=== PATIENT | female | born 1935 | race Caucasian/White ===

== ENCOUNTER 2017-07-05 11:13 | Emergency (ER) | payer OTHER ==
[~2017-07-05] VITALS: Ht 154.9 cm; Wt 95.3 kg
[~2017-07-05 11:13] MED LIST: ALLOPURINOL PO; ALLOPURINOL100 MG PO; AMLODIPINE PO; AMLODIPINE5 MG PO; ASA PO; ASPIRIN81 M1 PO; COZAAR50 MG PO; DARVOCET N 1001 TAB PO; FUROSEMIDE PO; HUMALOG MIX 50/10 ML SC; HUMULOG; LASIX20 MG PO; LEVOTHYROXIN PO; LEVOTHYROXINE0.05 MG PO; LODINE200 MG PO; LOPRESSOR25 MG PO; LOSARTAN PO; Lopressor25 MG PO; MELOXICAM PO; MELOXICAM15 MG PO; METFORMIN PO; METFORMIN500 MG PO; METOPROLOL PO; MICRO-K8 MEQ PO; POTASSIUM CHLORIDE PO; PRAVACHOL20 MG PO; PRAVASTATIN PO; PROTONIX40 MG PO
[2017-07-05 11:18] VITALS: BP 152/63
== END 2017-07-05 13:40 | disposition home or self-care (01) ==
LOC: ED 11:13
DX: M54.2 Cervicalgia (principal); M25.511 Pain in right shoulder; E11.65 Type 2 diabetes mellitus with hyperglycemia; Z95.0 Presence of cardiac pacemaker; Z79.4 Long term (current) use of insulin; Z79.82 Long term (current) use of aspirin; Z88.0 Allergy status to penicillin; Z90.49 Acquired absence of other specified parts of digestive tract; W01.0XXA Fall on same level from slipping, tripping and stumbling without subsequent striking against object, initial encounter; Y93.89 Activity, other specified; Y92.9 Unspecified place or not applicable; Y99.9 Unspecified external cause status

== ENCOUNTER 2019-07-29 14:44 | Inpatient (IN) | payer OTHER ==
[~2019-07-29] VITALS: Ht 154.9 cm; Wt 90.6 kg
[2019-07-29 14:48] VITALS: BP 123/72
[2019-07-29 15:11] LABS: BASO % 0.6 % (0.0-1.0); EOS # 0.1 10*3/uL (0.0-0.4); EOS % 2.1 % (1.0-4.0); HEMATOCRIT 36.3 % (37.0-47.0); HEMOGLOBIN 11.8 g/dl (12.0-16.0); LYMPH # 1.7 10*3/uL (1.3-4.4); MEAN CELL VOLUME 96.5 fl (81.0-99.0); MEAN CORPUSCULAR HGB 31.4 pg (27.0-31.0); MEAN CORPUSCULAR HGB CONC 32.5 g/dl (33.0-37.0); MEAN PLATELET VOLUME 11.3 fl (9.6-12.3); MONO # 0.7 10*3/uL (0.1-1.0); MONO % 10.8 % (3.0-9.0); NEUT # 4.1 10*3/uL (2.3-7.9); NEUT % 61.4 % (47.0-73.0); PLATELET COUNT AUTOMATED 176 10*3/uL (130-400); RED BLOOD COUNT 3.76 10*6/uL (4.10-5.10); RED CELL DISTRI WIDTH 16.7 % (0-14.5); WHITE BLOOD COUNT 6.8 10*3/uL (4.8-10.8)
[2019-07-29 15:24] LABS: ACT PARTIAL THROMBO TIME 23.4 SECONDS (20.0-32.1); INTERNATIONAL NORM RATIO 0.9 (2.0-3.5)
[2019-07-29 15:26] LABS: ALBUMIN 3.3 gm/dl (3.1-4.5); ALKALINE PHOSPHATASE 77 U/L (45-117); BUN 42 mg/dl (7-24); CHLORIDE 112 mmol/L (98-107); POTASSIUM 5.6 mmol/L (3.5-5.1); SGOT/AST 9 IU/L (3-35); SGPT/ALT 13 U/L (12-78); SODIUM 137 mmol/L (136-145); TOTAL PROTEIN 7.5 gm/dL (6.4-8.2)
[2019-07-29 15:30] LABS: TROPONIN I < 0.015 ng/ml (<0.045)
[2019-07-29 17:01] VITALS: BP 132/41
--- NOTE | 2019-07-29 17:01 | NUR ---
NO C/O AT THIS TIME.FAMILY AT BEDSIDE.--NIGEL HUFFMAN RN
[2019-07-29 18:07] VITALS: BP 139/54
[2019-07-29 18:28] VITALS: BP 150/50
--- NOTE | 2019-07-29 18:28 | NUR ---
A 84 YEAR OLD FEMALE PATIENT, admitted to 5E, under the services of ROSSY Jha DO with a diagnosis of MICKI,SYNCOPE,CHEST PAIN. Chief complaint is MULTIPLE COMPLAINTS. Patient arrived via CART WITH RN from ER. Monitor applied. Initial assessment completed. Vital signs taken and recorded. See assessment for past medical history, medications and allergies. atient and/or family oriented to unit. [facility] visitation policy reviewed. Clothing/patient valuable form completed. FRANCISCO WISDOM
[2019-07-29] MEDS ORDERED: TRIAMTERENE-HC1 EACH PO (19:36)
[2019-07-29] MEDS ORDERED: VITAMIN D-32000 UNI1 PO (19:36)
[2019-07-29] MEDS ORDERED: LOSARTAN POTAS100 M1 PO (19:37)
[2019-07-29] MEDS ORDERED: Lopressor25 MG PO (19:37)
[2019-07-29 20:00] VITALS: BP 142/49
--- NOTE | 2019-07-29 20:21 | NUR ---
2000 RESTING IN BED WITH HOB ELEVATED. SIDE RAILS UP X'S 2. CALL LIGHT IN REACH. PT IS VERY BARROW. FAMILY VS. IV FLUIDS INFUSING WELL. NO DISTRESS NOTED.
--- NOTE | 2019-07-29 22:09 | NUR ---
NO RESULTS FROM EARLIER PO KAYEXALALTE GIVEN. WILL CONT TO MONITOR.
[2019-07-29 23:48] LABS: CREATININE 2.48 mg/dL (0.55-1.02); POTASSIUM 5.4 mmol/L (3.5-5.1)
[2019-07-30] VITALS: BP 139/50
--- NOTE | 2019-07-30 00:20 | NUR ---
RESTING IN BED WITH EYES CLOSED. APPEARS TO BE SLEEPING.
--- NOTE | 2019-07-30 06:08 | NUR ---
IV FLUIDS CONT. RESTING IN BED WITH EYES CLOSED. APPEARS TO BE SLEEPING. NO DISTRESS NOTED. CONDITION GUARDED.
[2019-07-30 06:51] LABS: CREATININE 2.08 mg/dL (0.55-1.02); POTASSIUM 5.5 mmol/L (3.5-5.1)
[2019-07-30 07:00] LABS: THYROID STIM HORMONE (HS) 2.27 uIU/ml (0.358-4.75)
[2019-07-30 08:00] VITALS: BP 132/72
[2019-07-30 08:06] LABS: VITAMIN D, 25-HYDROXY 20.3 ng/mL (30-100)
[2019-07-30 08:45] LABS: HEMATOCRIT 34.3 % (37.0-47.0); HEMOGLOBIN 11.2 g/dl (12.0-16.0); MEAN CELL VOLUME 95.8 fl (81.0-99.0); MEAN CORPUSCULAR HGB 31.3 pg (27.0-31.0); MEAN CORPUSCULAR HGB CONC 32.7 g/dl (33.0-37.0); MEAN PLATELET VOLUME 11.9 fl (9.6-12.3); PLATELET COUNT AUTOMATED 139 10*3/uL (130-400); RED BLOOD COUNT 3.58 10*6/uL (4.10-5.10); RED CELL DISTRI WIDTH 16.4 % (0-14.5); WHITE BLOOD COUNT 6.8 10*3/uL (4.8-10.8)
--- NOTE | 2019-07-30 08:52 | NUR ---
PHYSICAL THERAPY Nursing screen received and chart reviewed. Recommend PT evaluation if decline in functional status presents. Thank you. Lissette Moya,PT,DPT
[2019-07-30 09:01] LABS: TOTAL CELLS COUNTED 100 #CELLS
[2019-07-30 09:02] LABS: PLATELET SUFFICIENCY NORMAL (NORMAL)
--- NOTE | 2019-07-30 11:10 | NUR ---
Shift Mgr in to talk to patient. Patient states lives at HOME with HER DAUGHTER. There are STEPS steps in the home. Physician: L[facility]: [facility] Home health services: NONE AT THIS TIME Patient's level of ADLs: MODERATE ASSIST Patient has working utilities: YES DME: NONE Follow-up physician's appointment after d/c: WILL BE MADE BY HOSPITALIST NURSE DIRECTOR ON DISCHARGE Does patient want to access PORTAL?: NO Discharge plan PT LIVES WITH DAUGHTER AND STATES SHE PLANS TO RETURN HOME WITH DAUGHTER ON DISCHARGE. STATES SHE WILL HAVE NO NEEDS ON DISCHARGE AT THIS TIME. WILL CONTACT DAUGHTER TO MAKE SURE THERE ARE NO NEEDS. WILL CONTINUE TO FOLLOW. PT STATES SHE WILL HAVE A RIDE HOME.. MING GALLARDO
[2019-07-30 12:00] VITALS: BP 133/77
--- NOTE | 2019-07-30 13:19 | NUR ---
TRIED TO NOTIFY FAMILY THAT INSULIN PEN NOT AVAILABLE HERE....NO ANSWER.
--- NOTE | 2019-07-30 14:26 | NUR ---
SPOKE WITH PT DAUGHTER AMA ABOUT HOME HEALTH IN HOME. STATES SHE WOULD LIKE TO HAVE THEM BUT HER MOTHER REFUSES AND DOES NOT WANT PEOPLE IN THE HOUSE. STATES SHE IS ON HER WAY IN AND WILL TALK TO HER MOTHER ABOUT IT AND LET ME KNOW.
--- NOTE | 2019-07-30 15:00 | NUR ---
CALLED DAUGHTER TO LET HER KNOW OF DISCHRGE.
[2019-07-30] MEDS ORDERED: COZAAR25 M1 PO (15:12)
== END 2019-07-30 16:26 | disposition home or self-care (01) | DRG 205 ==
LOC: ED 14:44 → 5E 16:57 → EDHOLD 16:57 → 5E 17:27
PROVIDERS: Emergency Medicine; Internal Medicine; ADMIT Internal Medicine
DX: M94.0 Chondrocostal junction syndrome [Tietze] (principal); N17.0 Acute kidney failure with tubular necrosis; E44.1 Mild protein-calorie malnutrition; E87.5 Hyperkalemia; E83.41 Hypermagnesemia; D64.9 Anemia, unspecified; E11.65 Type 2 diabetes mellitus with hyperglycemia; M10.9 Gout, unspecified; E03.9 Hypothyroidism, unspecified; I10 Essential (primary) hypertension; I25.10 Atherosclerotic heart disease of native coronary artery without angina pectoris; E78.5 Hyperlipidemia, unspecified; Z95.0 Presence of cardiac pacemaker; Z87.891 Personal history of nicotine dependence; Z90.710 Acquired absence of both cervix and uterus; Z90.49 Acquired absence of other specified parts of digestive tract; Z79.4 Long term (current) use of insulin; Z79.899 Other long term (current) drug therapy; Z88.0 Allergy status to penicillin; Z82.49 Family history of ischemic heart disease and other diseases of the circulatory system; Z83.3 Family history of diabetes mellitus

== ENCOUNTER → 2019-07-31 | Outpatient (CLI) | payer OTHER ==
[~2019-07-31] MED LIST changes: +COZAAR25 M1 PO; +LOSARTAN POTAS100 M1 PO; +TRIAMTERENE-HC1 EACH PO; +VITAMIN D-32000 UNI1 PO
[2019-07-31 12:02] LABS: CREATININE 1.67 mg/dL (0.55-1.02)
[2019-07-31 12:24] LABS: POTASSIUM 4.2 mmol/L (3.5-5.1)
== END | disposition home or self-care (01) ==
LOC: LAB 10:44
PROVIDERS: Internal Medicine
DX: N17.0 Acute kidney failure with tubular necrosis (principal)